=== PATIENT | female | born 1970 | race Two or more races ===

== ENCOUNTER → 2017-05-17 06:57 | Outpatient (CLI) | payer OTHER ==
[~2017-05-17 06:57] MED LIST: COZAAR25 MG PO; METFORMIN HCL850 MG PO
== END | disposition home or self-care (01) ==
LOC: LAB 06:57
DX: D72.818 Other decreased white blood cell count (principal); Z13.29 Encounter for screening for other suspected endocrine disorder

== ENCOUNTER 2017-05-17 08:31 | Outpatient (CLI) | payer OTHER | END 2017-05-17 17:00 | disposition home or self-care (01) | LOC: SONOGRAMA 08:31 → MAMO-SONO 11:45 → SONOGRAMA 17:00 | DX: D72.818 Other decreased white blood cell count (principal); Z13.29 Encounter for screening for other suspected endocrine disorder ==

== ENCOUNTER → 2017-06-11 07:25 | Outpatient (CLI) | payer OTHER | END | disposition home or self-care (01) | LOC: LAB 06-09 07:57 | DX: M32.8 Other forms of systemic lupus erythematosus (principal); M04.8 Other autoinflammatory syndromes; E03.8 Other specified hypothyroidism; D72.819 Decreased white blood cell count, unspecified; M05.80 Other rheumatoid arthritis with rheumatoid factor of unspecified site; D81 Combined immunodeficiencies ==

== ENCOUNTER 2017-09-28 06:57 | Outpatient (CLI) | payer OTHER | END 2017-09-28 07:00 | disposition home or self-care (01) | LOC: LAB 06:57 | DX: I10 Essential (primary) hypertension (principal) ==

== ENCOUNTER 2017-09-28 07:34 | Outpatient (CLI) | payer OTHER | END 2017-09-28 17:00 | disposition home or self-care (01) | LOC: MAMO-SONO 07:34 | DX: Z12.31 Encounter for screening mammogram for malignant neoplasm of breast (principal) ==

== ENCOUNTER 2018-10-29 13:38 | Outpatient (CLI) | payer OTHER | END 2018-10-29 13:49 | disposition home or self-care (01) | LOC: MAMO-SONO 13:38 | DX: Z12.31 Encounter for screening mammogram for malignant neoplasm of breast (principal); N63.10 Unspecified lump in the right breast, unspecified quadrant; N63.20 Unspecified lump in the left breast, unspecified quadrant ==

== ENCOUNTER 2020-11-10 09:32 | Outpatient (CLI) | payer OTHER | END 2020-11-10 15:16 | disposition home or self-care (01) | LOC: MAMO-SONO 09:32 | PROVIDERS: ATTEND Specialist | DX: N64.89 Other specified disorders of breast (principal); Z12.31 Encounter for screening mammogram for malignant neoplasm of breast ==

== ENCOUNTER 2022-05-04 17:57 | Emergency (ER) | payer OTHER ==
[~2022-05-04] VITALS: Ht 162.6 cm; Wt 79.4 kg
[2022-05-04] MEDS ORDERED: ATORVASTATIN CA20 MG PO (18:28)
== END 2022-05-04 21:30 | disposition home or self-care (01) ==
LOC: ER 17:57
DX: R53.1 Weakness (principal); E11.9 Type 2 diabetes mellitus without complications; Z79.84 Long term (current) use of oral hypoglycemic drugs; I10 Essential (primary) hypertension

== ENCOUNTER 2022-05-27 07:19 | Outpatient (CLI) | payer OTHER ==
[~2022-05-27 07:19] MED LIST changes: +ATORVASTATIN CA20 MG PO
== END 2022-05-27 07:20 | disposition home or self-care (01) ==
LOC: LAB 07:19
PROVIDERS: ATTEND Specialist
DX: R42 Dizziness and giddiness (principal); I10 Essential (primary) hypertension; E08.9 Diabetes mellitus due to underlying condition without complications

== ENCOUNTER 2022-05-31 08:33 | Outpatient (CLI) | payer OTHER | END 2022-05-31 09:00 | disposition home or self-care (01) | LOC: TOM 08:33 | PROVIDERS: ATTEND Specialist | DX: R42 Dizziness and giddiness (principal); I10 Essential (primary) hypertension; E08.9 Diabetes mellitus due to underlying condition without complications ==

== ENCOUNTER 2023-02-06 11:27 | Outpatient (CLI) | payer OTHER | END 2023-02-06 11:39 | disposition home or self-care (01) | LOC: MAMO-SONO 11:27 | PROVIDERS: ATTEND Specialist | DX: Z12.31 Encounter for screening mammogram for malignant neoplasm of breast (principal); N63.0 Unspecified lump in unspecified breast ==

== ENCOUNTER 2023-04-24 11:21 | Outpatient (CLI) | payer OTHER | END 2023-04-25 15:34 | disposition home or self-care (01) | LOC: TOM 11:21 | PROVIDERS: ATTEND Internal Medicine Gastroenterology | DX: K56.600 Partial intestinal obstruction, unspecified as to cause (principal) ==

== ENCOUNTER → 2024-02-11 | Outpatient (CLI) | payer OTHER | END | disposition home or self-care (01) | LOC: MAMO-SONO 11:15 | PROVIDERS: ATTEND Specialist | DX: N63.0 Unspecified lump in unspecified breast (principal); Z12.31 Encounter for screening mammogram for malignant neoplasm of breast ==

== ENCOUNTER 2025-02-11 14:19 | Outpatient (CLI) | payer OTHER | END 2025-02-11 14:22 | disposition home or self-care (01) | LOC: MAMO-SONO 14:19 | PROVIDERS: ATTEND Specialist | DX: N63.0 Unspecified lump in unspecified breast (principal); Z12.31 Encounter for screening mammogram for malignant neoplasm of breast ==